=== PATIENT | female | born 1955 | race Caucasian/White ===

== ENCOUNTER 2017-01-02 23:08 | Emergency (ER) | payer MEDICARE, OTHER ==
[2017-01-02 23:09] VITALS: BMI 32.8
[2017-01-02 23:23] VITALS: RESP 18; TEMP 98.1
--- NOTE | 2017-01-03 | ED PDOC ---
Arrival/HPI - General Chief Complaint: Palpitations Time Seen by Provider: 01/02/17 23:15 Historian: Patient - History of Present Illness Narrative History of Present Illness (Text): 01/03/17 23:27 61 year old female, whose past medical history includes asthma, diabetes mellitus, and hypothyroidism, who presents to the Emergency department complaining of palpitations after waking up tonight. Patient reports associated numbness sensation in bilateral feet. Patient states symptoms are similar to previous episodes of anxiety. She denies any shortness of breath, chest pain, abdominal pain, fever, nausea, vomiting, diarrhea, or any other symptoms at this time. Time/Duration: Prior to Arrival Symptom Onset: Sudden Symptom Course: Unchanged Activities at Onset: Rest Context: Home Past Medical History - Provider Review Nursing Documentation Reviewed: Yes - Infectious Disease Hx of Infectious Diseases: None - Tetanus Immunization Tetanus Immunization: Unknown - Cardiac Hx Cardiac Disorders: Yes Hx Hypertension: Yes - Pulmonary Hx Respiratory Disorders: Yes Hx Asthma: Yes Hx Pneumonia: Yes - Neurological Hx Neurological Disorder: Yes Hx Syncope: Yes - HEENT Hx HEENT Disorder: No - Renal Hx Renal Disorder: No - Endocrine/Metabolic Hx Endocrine Disorders: Yes Hx Diabetes Mellitus Type 2: Yes Hx Hypothyroidism: Yes - Hematological/Oncological Hx Blood Disorders: No - Integumentary Hx Dermatological Disorder: No Other/Comment: lupus - Musculoskeletal/Rheumatological Hx Arthritis: Yes Hx Falls: No Hx Osteoarthritis: Yes - Gastrointestinal Hx Gastrointestinal Disorders: No - Genitourinary/Gynecological Hx Genitourinary Disorders: No - Psychiatric Hx Anxiety: Yes Hx Depression: Yes Hx Emotional Abuse: No Hx Physical Abuse: No Hx Substance Use: No - Past Surgical History Past Surgical History: No Previous - Surgical History Hx Orthopedic Surgery: Yes (Pin in left shoulder) - Anesthesia Hx Anesthesia: Yes Hx Anesthesia Reactions: No Hx Malignant Hyperthermia: No - Suicidal Assessment Feels Threatened In Home Enviroment: No Family/Social History - Physician Review Nursing Documentation Reviewed: Yes Family/Social History: Unknown Family HX Smoking Status: Never Smoked Hx Alcohol Use: No Hx Substance Use: No Hx Substance Use Treatment: No Allergies/Home Meds Allergies/Adverse Reactions: Allergies No Known Allergies Allergy (Verified 01/02/17 23:19) Home Medications: Home Meds Medication Instructions Recorded Confirmed Cholecalciferol (Vitamin D3) 2 cap PO DAILY 05/03/14 01/02/17 [Vitamin D3] FLUoxetine [Prozac] 1 cap PO HS 05/03/14 01/02/17 Fluticasone Propionate [Flovent 1 puff INH QID 05/03/14 01/02/17 Hfa] Haloperidol [Haldol] 1 tab PO HS 05/03/14 01/02/17 Metoprolol Tartrate 1 tab PO BID 05/03/14 01/02/17 Naproxen 1 tab PO BID 05/03/14 01/02/17 Vitamin B Complex & Vitamin C 1 tab PO DAILY 05/03/14 01/02/17 [Strovite] Fluticasone/Salmeterol 250/50 1 puff IH PRN PRN 08/15/14 01/02/17 [Advair Diskus] Review of Systems - Physician Review All systems were reviewed & negative as marked: Yes - Review of Systems Constitutional: Normal. absent: Fevers Respiratory: Normal. absent: SOB Cardiovascular: Palpitations. absent: Chest Pain Gastrointestinal: Normal. absent: Abdominal Pain, Diarrhea, Nausea, Vomiting Musculoskeletal: Normal. absent: Back Pain, Neck Pain Skin: Normal Neurological: Other (Bilateral feet numbness ). absent: Headache, Dizziness Physical Exam Vital Signs Reviewed: Yes Vital Signs Temp Pulse Resp BP Pulse Ox 01/02/17 23:19 98.1 F 100 H 18 157/93 H 100 Temperature: Afebrile Blood Pressure: Hypertensive Pulse: Regular Respiratory Rate: Normal Appearance: Positive for: Well-Appearing, Non-Toxic, Comfortable Pain Distress: None Mental Status: Positive for: Alert and Oriented X 3 - Systems Exam Head: Present: Atraumatic, Normocephalic Pupils: Present: PERRL Extroacular Muscles: Present: EOMI Conjunctiva: Present: Normal Mouth: Present: Moist Mucous Membranes Neck: Present: Normal Range of Motion Respiratory/Chest: Present: Clear to Auscultation, Good Air Exchange. No: Respiratory Distress, Accessory Muscle Use Cardiovascular: Present: Regular Rate and Rhythm, Normal S1, S2. No: Murmurs Abdomen: Present: Normal Bowel Sounds. No: Tenderness, Distention, Peritoneal Signs Back: Present: Normal Inspection Upper Extremity: Present: Normal Inspection. No: Cyanosis, Edema Lower Extremity: Present: Normal Inspection. No: Edema Neurological: Present: GCS=15, CN II-XII Intact, Speech Normal Skin: Present: Warm, Dry, Normal Color. No: Rashes Psychiatric: Present: Alert, Oriented x 3, Normal Insight, Normal Concentration Medical Decision Making ED Course and Treatment: 01/03/17 23:27 Impression: 61 year old female with chest palpitations. Differential Diagnosis included but are not limited to: anxiety Plan: -- EKG -- Chest X-ray -- Labs, cardiac enzymes, TSH, T4 -- Ativan -- Reassess and disposition Progress Notes: EKG: Ordered, reviewed, and independently interpreted the EKG. Rate : 100 BPM Rhythm : NSR Interpretation : Non specific ST/T wave changes. Comparison : No previous EKG for comparison from 05/03/14. 01/03/17 00:43 Chest X-ray No acute processes. 01/03/17 00:43 Chest X-ray No acute processes. 01/03/17 01:13 Reevaluation: On reevaluation the patient feels better and is in no acute distress. I have discussed the results and plan with the patient, who expresses understanding. Patient given the opportunity to ask question, all questions were answered and there is agreement with the plan to discharge the patient home. Patient is stable for discharge. Patient was instructed to follow up with physician/clinic in 1-2 days or return if symptoms persist/worsen or new concerning symptoms arise. Re-evaluation Time: 01:13 Reassessment Condition: Re-examined, Improved - Lab Interpretations Lab Results: 01/02/17 23:50 01/02/17 23:50 Lab Results 01/02/17 23:50: Thyroxine (T4) 11.8 H, TSH 3rd Generation 1.29 01/02/17 23:50: Sodium 135, Potassium 3.7, Chloride 101, Carbon Dioxide 22, Anion Gap 16, BUN 20, Creatinine 0.9, Est GFR ( Amer) > 60, Est GFR (Non- Af Amer) > 60, Random Glucose 175 H, Calcium 9.6, Total Bilirubin 0.6, AST 50 H , ALT 76 H, Alkaline Phosphatase 120, Lactate Dehydrogenase 495, Total Creatine Kinase 82, Troponin I < 0.01, Total Protein 7.9, Albumin 4.1, Globulin 3.7, Albumin/Globulin Ratio 1.1 01/02/17 23:50: WBC 8.6, RBC 4.94, Hgb 15.7, Hct 44.8, MCV 90.7, MCH 31.8, MCHC 35.0, RDW 12.2, Plt Count 211, MPV 11.5 H, Neutrophils % (Manual) Pending, Lymphocytes % (Manual) Pending, Monocytes % (Manual) Pending I have reviewed the lab results: Yes - RAD Interpretation Radiology Orders: 01/02/17 23:38 CHEST PORTABLE [RAD] Stat Electric Clock Mechanic: ED Physician - EKG Interpretation Interpreted by ED Physician: Yes Type: 12 lead EKG - Medication Orders Current Medication Orders: Discontinued Medications Lorazepam (Ativan) 0.5 mg PO ONCE ONE PRN Reason: Protocol Stop: 01/02/17 23:40 Last Admin: 01/02/17 23:55 Dose: 0.5 mg - Scribe Statement The provider has reviewed the documentation as recorded by the [employer] training under Hodan Hernandez. Provider Scribe Attestation: All medical record entries made by the Scribe were at my direction and personally dictated by me. I have reviewed the chart and agree that the record accurately reflects my personal performance of the history, physical exam, medical decision making, and the department course for this patient. I have also personally directed, reviewed, and agree with the discharge instructions and disposition. Disposition/Present on Arrival - Present on Arrival Any Indicators Present on Arrival: No History of DVT/PE: No History of Uncontrolled Diabetes: No Urinary Catheter: No History of Decub. Ulcer: No History Surgical Site Infection Following: None - Disposition Have Diagnosis and Disposition been Completed?: Yes Diagnosis: Anxiety Disposition: HOME/ ROUTINE Disposition Time: 01:13 Patient Problems: Current Active Problems Problem Status Onset Anxiety Acute Condition: GOOD Discharge Instructions (ExitCare): Anxiety (ED)
[2017-01-03 00:15] LABS: HEMATOCRIT 44.8 % (36.0-48.0); MEAN CELL VOLUME 90.7 fL (80.0-105.0); MEAN CORPUSCULAR HEMOGLOBIN 31.8 pg (25.0-35.0); MEAN PLATELET VOLUME 11.5 fl (7.0-11.0); PLATELET COUNT 211 10^3/uL (120.0-450.0); RED CELL DISTRIBUTION WIDTH 12.2 % (11.5-14.5); WHITE BLOOD COUNT 8.6 10^3/ul (4.5-11.0)
[2017-01-03 00:21] LABS: ADD MANUAL DIFF? YES
[2017-01-03 00:29] LABS: ALB/GLOB RATIO 1.1 (1.1-1.8); ALKALINE PHOSPHATASE 120 U/L (38-133); ALT/SGPT 76 U/L (7-56); AST/SGOT 50 U/L (15-39); BILIRUBIN,TOTAL 0.6 mg/dL (0.2-1.3); BLOOD UREA NITROGEN 20 mg/dL (7-21); CALCIUM 9.6 mg/dL (8.4-10.5); CARBON DIOXIDE 22 mmol/L (21-33); CHLORIDE 101 mmol/L (98-107); GFR AFRICAN-AMERICAN > 60; GLUCOSE,RANDOM 175 mg/dL (70-110); POTASSIUM 3.7 mmol/L (3.6-5.0); SODIUM 135 mmol/L (132-148); TOTAL PROTEIN 7.9 g/dL (5.8-8.3)
[2017-01-03 00:43] LABS: TROPONIN I < 0.01 ng/mL
[2017-01-03 00:46] LABS: T4 11.8 ug/dL (5.5-11.0)
[2017-01-03 01:00] LABS: THYROID STIMULATING HORMONE 1.29 mIU/mL (0.46-4.68)
[2017-01-03 01:23] LABS: ATYPICAL LYMPHOCYTE 3 % (0.0-0.0); BAND 2 % (0-2); NEUTROPHIL 23 % (50.0-70.0)
[2017-01-03 01:24] LABS: BASOPHIL 1 % (0.0-1.0); EOSINOPHIL 4 % (0.0-3.0); PLATELET ESTIMATE NORMAL (NORMAL)
[2017-01-03 01:27] VITALS: BP 142/66; PULSE 8; O2SAT 99
--- NOTE | 2017-01-03 09:28 | RAD ---
HISTORY: palpitations COMPARISON: 07/12/2013 FINDINGS: LUNGS: No active pulmonary disease. PLEURA: No significant pleural effusion identified, no pneumothorax apparent. CARDIOVASCULAR: Normal. OSSEOUS STRUCTURES: No significant abnormalities. VISUALIZED UPPER ABDOMEN: Normal. OTHER FINDINGS: None. IMPRESSION: No active disease.
--- NOTE | 2017-01-03 14:24 | CARD ---
APPROVED REPORT EKG Measurement Heart [id number] <Conclusion> Normal sinus rhythm Nonspecific ST abnormality Prolonged QT Abnormal ECG
== END 2017-01-03 01:28 | disposition home or self-care (01) ==
LOC: ED 23:08
DX: F41.9 Anxiety disorder, unspecified (principal); E11.9 Type 2 diabetes mellitus without complications; E03.9 Hypothyroidism, unspecified; I10 Essential (primary) hypertension

== ENCOUNTER 2017-09-29 15:25 | Emergency (ER) | payer MEDICARE, MEDICAID ==
[2017-09-29 15:32] VITALS: BMI 32.1
[2017-09-29 15:47] VITALS: RESP 18; TEMP 98; O2SAT 98
--- NOTE | 2017-09-29 15:53 | ED PDOC ---
Arrival/HPI - General Chief Complaint: Finger,Hand,&Wrist Time Seen by Provider: 09/29/17 15:39 Historian: Patient, Family - History of Present Illness Narrative History of Present Illness (Text): 09/29/17 15:50 Patient is a 61 yo female, left handed, presents to Emergency department after sustaining injury to her RIGHT arm prior to arrival. Patient states she was walking her two small dogs this morning when she was pulled by the leash she was holding in her right hand. States she developed severe pain to her right wrist that extends to her right elbow. Denies weakness. Denies numbness. Denies any fall or direct impact. Denies shoulder pain. Past Medical History - Infectious Disease Hx of Infectious Diseases: None - Tetanus Immunization Tetanus Immunization: Unknown - Reproductive Menopause: Yes - Cardiac Hx Cardiac Disorders: Yes Hx Hypertension: Yes - Pulmonary Hx Respiratory Disorders: Yes Hx Asthma: Yes Hx Pneumonia: Yes - Neurological Hx Neurological Disorder: Yes Hx Syncope: Yes - HEENT Hx HEENT Disorder: No - Renal Hx Renal Disorder: No - Endocrine/Metabolic Hx Endocrine Disorders: Yes Hx Diabetes Mellitus Type 2: Yes Hx Hypothyroidism: Yes - Hematological/Oncological Hx Blood Disorders: No - Integumentary Hx Dermatological Disorder: No Other/Comment: lupus - Musculoskeletal/Rheumatological Hx Arthritis: Yes Hx Falls: No Hx Osteoarthritis: Yes - Gastrointestinal Hx Gastrointestinal Disorders: No - Genitourinary/Gynecological Hx Genitourinary Disorders: No - Psychiatric Hx Anxiety: Yes Hx Depression: Yes Hx Emotional Abuse: No Hx Physical Abuse: No Hx Substance Use: No - Past Surgical History Past Surgical History: No Previous - Surgical History Hx Orthopedic Surgery: Yes (Pin in left shoulder) - Anesthesia Hx Anesthesia: Yes Hx Anesthesia Reactions: No Hx Malignant Hyperthermia: No - Suicidal Assessment Feels Threatened In Home Enviroment: No Family/Social History Family/Social History: Unknown Family HX Smoking Status: Never Smoked Hx Alcohol Use: No Hx Substance Use: No Hx Substance Use Treatment: No Allergies/Home Meds Allergies/Adverse Reactions: Allergies No Known Allergies Allergy (Verified 01/02/17 23:19) Home Medications: Home Meds Medication Instructions Recorded Confirmed Cholecalciferol (Vitamin D3) 2 cap PO DAILY 05/03/14 09/29/17 [Vitamin D3] FLUoxetine [Prozac] 1 cap PO HS 05/03/14 09/29/17 Fluticasone Propionate [Flovent 1 puff INH QID 05/03/14 09/29/17 Hfa] Haloperidol [Haldol] 1 tab PO HS 05/03/14 09/29/17 Metoprolol Tartrate 1 tab PO BID 05/03/14 09/29/17 Naproxen 1 tab PO BID 05/03/14 09/29/17 Vitamin B Complex & Vitamin C 1 tab PO DAILY 05/03/14 09/29/17 [Strovite] Fluticasone/Salmeterol 250/50 1 puff IH PRN PRN 08/15/14 09/29/17 [Advair Diskus] Review of Systems - Review of Systems Constitutional: absent: Fevers Respiratory: absent: SOB Cardiovascular: absent: Chest Pain Musculoskeletal: Joint Swelling, Other (pain to right wrist and forearm). absent: Back Pain, Neck Pain Skin: absent: Rash Neurological: absent: Headache, Dizziness, Focal Weakness, Speech Changes Endocrine: absent: Polyuria Hemo/Lymphatic: absent: Easy Bleeding Physical Exam Vital Signs Reviewed: Yes Vital Signs Temp Pulse Resp BP Pulse Ox 09/29/17 16:43 64 18 112/73 98 09/29/17 15:34 98.0 F 82 18 128/84 98 Temperature: Afebrile Appearance: Positive for: Uncomfortable Pain Distress: Mild Mental Status: Positive for: Alert and Oriented X 3 - Systems Exam Head: Present: Atraumatic Nose (Internal): Present: Normal Inspection Neck: Present: Normal Range of Motion. No: Meningeal Signs, MIDLINE TENDERNESS Respiratory/Chest: Present: Clear to Auscultation. No: Respiratory Distress Cardiovascular: Present: Regular Rate and Rhythm Back: No: CVA Tenderness, Midline Tenderness Upper Extremity: Present: NORMAL PULSES, Tenderness, Swelling, Neurovascularly Intact, Norm 2-Pt Discrimination, Other (pain note to dorsal aspect of right wrist, worse with flexion/extension and worse with supination/pronation, there is pain on direct palpation along ulnar aspect of right forearm, mild soft tissue swelling noted to wrist. NO snuffbox pain. Median/radial/ulnar motor and sensory function intact. radial pulse strong). No: Temperature Abnormalties, Deformity Lower Extremity: Present: NORMAL PULSES Neurological: Present: Motor Func Grossly Intact, Normal Sensory Function Skin: Present: Warm Psychiatric: Present: Alert, Normal Insight, Normal Concentration Medical Decision Making ED Course and Treatment: 09/29/17 16:43 Patient denies direct impact. On exam, pain with movement of wrist, but no snuffbox pain and patient nv intact. Xrays negative for unstable fx. Suspect wrist sprain. Limitations of imaging studies reviewed with patient. Have recommended wrist splint, ortho follow-up, nsaids. - RAD Interpretation Radiology Orders: 09/29/17 15:45 FOREARM RIGHT [RAD] Stat WRIST, RIGHT 3 VIEWS [RAD] Stat Disposition/Present on Arrival - Present on Arrival Any Indicators Present on Arrival: No History of DVT/PE: No History of Uncontrolled Diabetes: No Urinary Catheter: No History of Decub. Ulcer: No History Surgical Site Infection Following: None - Disposition Have Diagnosis and Disposition been Completed?: Yes Diagnosis: Wrist sprain Disposition: HOME/ ROUTINE Disposition Time: 16:44 Patient Plan: Discharge Patient Problems: Current Active Problems Problem Status Onset Wrist sprain Acute Condition: GOOD Discharge Instructions (ExitCare): Wrist Sprain (DC) Additional Instructions: For any increased pain, swelling, redness, fevers, numbness or weakness, persistent or worsening of any symptoms, get rechecked. Follow-up with orthopedic doctor as directed. Take naproxen as directed for mild pain. Prescriptions: Naproxen 250 mg PO BID PRN #10 tablet PRN Reason: Pain, Mild (1-3) Referrals: Alejandra Maynard DO [[facility]] - Follow up with primary Forms: Ammado (Spanish)
[2017-09-29 16:44] VITALS: BP 112/73; PULSE 64
--- NOTE | 2017-09-30 09:05 | RAD ---
PROCEDURE: Right Wrist Radiographs. HISTORY: wrist pain after twisting COMPARISON: None. FINDINGS: BONES: Normal. No fracture. JOINTS: Normal. No dislocation. SOFT TISSUES: Normal. OTHER FINDINGS: None. IMPRESSION: Normal right wrist radiographs.
--- NOTE | 2017-09-30 09:06 | RAD ---
PROCEDURE: Radiographs of the Right Forearm HISTORY: arm pain after twisting COMPARISON: None available. TECHNIQUE: Frontal and lateral views obtained. FINDINGS: BONES: No fracture or destructive lesion. JOINT SPACES: Unremarkable. OTHER FINDINGS: None. IMPRESSION: Unremarkable radiographs of the right forearm.
== END 2017-09-29 16:52 | disposition home or self-care (01) ==
LOC: ED 15:25
DX: S63.501A Unspecified sprain of right wrist, initial encounter (principal); X50.1XXA Overexertion from prolonged static or awkward postures, initial encounter; Y93.K1 Activity, walking an animal; Y92.89 Other specified places as the place of occurrence of the external cause; E11.9 Type 2 diabetes mellitus without complications